=== PATIENT | male | born 1975 | race American Indian/Alaskan Native ===

== ENCOUNTER 2019-06-01 18:30 | Emergency (ER) | payer OTHER ==
--- NOTE | 2019-06-01 18:51 | Event Note ---
ED Screening Note Date of service: 06/01/19 Time: 18:48 ED Screening Note: 43 y/o male rt hip pain injuried a year ago. Ambulating well. This initial assessment/diagnostic orders/clinical plan/treatment(s) is/are subject to change based on patients health status, clinical progression and re- assessment by fellow clinical providers in the ED. Further treatment and workup at subsequent clinical providers discretion. Patient/guardian urged not to elope from the ED as their condition may be serious if not clinically assessed and managed. Initial orders include:
--- NOTE | 2019-06-01 19:31 | XRay Report ---
RIGHT HIP, 2 VIEWS INDICATION / CLINICAL INFORMATION: rt hip pain. COMPARISON: None available. FINDINGS: Mild degenerative changes are present in both hips, slightly more advanced on the right. No fracture or dislocation. IMPRESSION: Mild degenerative changes within the right hip. No fracture or dislocation. Signer Name: Catherine Monk MD Signed: 06/01/2019 7:27 PM Workstation Name: [id number]
[2019-06-01 19:57] VITALS: BP 128/91
[2019-06-01] MEDS ORDERED: IBUPROFEN PO ONE (20:41)
--- NOTE | 2019-06-01 20:46 | Emergency Department Report ---
HPI - General Chief Complaint: Extremity Injury, Lower Time Seen by Provider: 06/01/19 20:28 - HPI HPI: Mora 25 The patient is a 43-year-old male presenting with a chief complaint of right hip pain. The patient states in January 2018 he injured his right hip playing basketball. Patient states he essentially did a split with his right leg planted on the ground. The patient states he continued to play basketball and the following day went to urgent care facility. Patient states he had x-rays of the right hip which were negative. The patient states he followed up with his chiropractor and had adjustments made at times. The patient states over the past 2 weeks he has noticed increased pain in the right hip that worsens with movement. Patient denies any recent injuries. The patient states she has been working out normally and does not recall a specific moment when he felt as though he injured his right hip. Location: Right hip Duration: [See above] Quality: Pain Severity: [See above] Modifying factors: [see above] Context: [see above] Mode of transportation: [not driving] ED Past Medical Hx - Past Medical History Previous Medical History?: No - Surgical History Past Surgical History?: Yes Additional Surgical History: left foot surgery - Family History Family history: no significant - Social History Smoking Status: Never Smoker Substance Use Type: None (denies illicit drug use) - Medications Home Medications: Home Medications Medication Instructions Recorded Confirmed Last Taken Type HYDROcodone/APAP 5-325 [Carnation 1 - 2 each PO Q6HR PRN #20 tablet 06/01/19 Unknown Rx 5/325] Ibuprofen [Motrin 800 MG tab] 800 mg PO Q8HR PRN #20 tablet 06/01/19 Unknown Rx ED Review of Systems ROS: Stated complaint: RT HIP PAIN Other details as noted in HPI Constitutional: no symptoms reported Eyes: denies: eye pain ENT: denies: throat pain Respiratory: no symptoms reported Cardiovascular: denies: chest pain Endocrine: no symptoms reported Gastrointestinal: denies: abdominal pain Genitourinary: denies: dysuria Musculoskeletal: arthralgia Neurological: denies: headache Physical Exam - Physical Exam Vital Signs: Vital Signs 06/01/19 06/01/19 18:48 19:56 Temperature 97.9 F 98.3 F Pulse Rate 77 76 Respiratory 16 16 Rate Blood Pressure 142/105 Blood Pressure 128/91 [Left] O2 Sat by Pulse 98 98 Oximetry Physical Exam: GENERAL: The patient is well-developed well-nourished male lying on stretcher not appear to be in acute distress. [] HEENT: Normocephalic. Atraumatic. Extraocular motions are intact. Patient has moist mucous membranes. NECK: Trachea midline CHEST/LUNGS: There is no respiratory distress noted. HEART/CARDIOVASCULAR: Regular. There is no tachycardia. 2+ right DP ABDOMEN: Abdomen is soft, nontender. Patient has normal bowel sounds. There is no abdominal distention. SKIN: There is no rash. There is no edema. There is no diaphoresis. NEURO: The patient is awake, alert, and oriented. The patient has no focal neurologic deficits. The patient has normal speech MUSCULOSKELETAL: There is no right calf tenderness. There is some discomfort elicited with axial loading of the right hip with it in the flexed position. There is no pain elicited with external rotation of the right hip. Mild discomfort elicited with internal rotation of the right hip. ED Course Vital Signs 06/01/19 06/01/19 18:48 19:56 Temperature 97.9 F 98.3 F Pulse Rate 77 76 Respiratory 16 16 Rate Blood Pressure 142/105 Blood Pressure 128/91 [Left] O2 Sat by Pulse 98 98 Oximetry ED Medical Decision Making - Radiology Data Radiology results: report reviewed (right hip x-ray), image reviewed (right hip x-ray) interpreted by me: Right hip x-ray-no acute fracture [facility] [address] [place] [address] XRay Report Signed Patient: EMMETT JACOBSON MR#: [id number] : 1975 Acct:[id number] Age/Sex: 43 / M ADM Date: 06/01/19 Loc: ED Attending Dr: Ordering Physician: MEAGAN ROMERO Date of Service: 06/01/19 Procedure(s): XR hip 2-3V RT Accession Number(s): [id number] cc: MEAGAN ROMERO Fluoro Time In Minutes: RIGHT HIP, 2 VIEWS INDICATION / CLINICAL INFORMATION: rt hip pain. COMPARISON: None available. FINDINGS: Mild degenerative changes are present in both hips, slightly more advanced on the right. No fracture or dislocation. IMPRESSION: Mild degenerative changes within the right hip. No fracture or dislocation. Signer Name: Catherine Monk MD Signed: 06/01/2019 7:27 PM Workstation Name: [id number] Transcribed By: JR Jihan hernandez By: Catherine Monk MD Electronically Authenticated By: Catherine Monk MD Signed Date/Time: 06/01/191926 DD/ 25 TD/TT: - Differential Diagnosis arthritis right hip, right hip strain, Critical care attestation.: If time is entered above; I have spent that time in minutes in the direct care of this critically ill patient, excluding procedure time. ED Disposition Clinical Impression: Right hip pain Disposition: - TO HOME OR SELFCARE Is pt being admited?: No Does the pt Need Aspirin: No Condition: Stable Additional Instructions: Return to the emergency department immediately should you develop worsening symptoms, fever, inability to tolerate food or liquid or any other concerns. Prescriptions: Ibuprofen [Motrin 800 MG tab] 800 mg PO Q8HR PRN #20 tablet PRN Reason: Pain, Moderate (4-6) HYDROcodone/APAP 5-325 [Carnation 5/325] 1 - 2 each PO Q6HR PRN #20 tablet PRN Reason: Pain Referrals: GREGG GILBERT MD [Staff Physician] - [facility] (Dr. Gilbert is an orthopedic surgeon. Please follow with him for further evaluation) Time of Disposition: 20:48
== END 2019-06-01 20:59 | disposition home or self-care (01) ==
LOC: ED 18:30
DX: M25.551 Pain in right hip (principal); Z98.890 Other specified postprocedural states; Z79.899 Other long term (current) drug therapy
CPT/HCPCS: 99283